=== PATIENT | male | born 1955 | race Hispanic/Latino ===

== ENCOUNTER 2020-08-28 09:25 | Outpatient (CLI) | payer MEDICARE ==
--- NOTE | 2020-08-28 11:27 | RAD ---
Radiograph right hip 2 views: 08/28/2020 HISTORY: 64-year-old male with right hip pain FINDINGS: High-grade degenerative disc disease at L4-5 and L5-S1. Narrowing of the [id number] lateral aspect of the right hip joint space, where there is mild s clerosis Femoral head contour maintained. No subcapital osteophytes. No fracture or dislocation. No high-grade DJD of right SI joint. IMPRESSION: 1.) Mild to moderate osteoarthrosis focally at the superolateral aspect of the right hip joint. 2.) High-grade lower lumbar and lumbosacral spondylosis.
--- NOTE | 2020-08-29 12:38 | RAD ---
XR Lumbar Spine 2 or 3 View HISTORY: 64-year-old male with right hip pain FINDINGS: High-grade degenerative disc disease at L4-5 and L5-S1. Narrowing of the [id number] lateral aspect of the right hip joint space, where there is mild s clerosis Femoral head contour maintained. No subcapital osteophytes. No fracture or dislocation. No high-grade DJD of right SI joint. IMPRESSION: 1.) Mild to moderate osteoarthrosis focally at the superolateral aspect of the right hip joint. 2.) High-grade lower lumbar and lumbosacral spondylosis. Transcribed Date/Time: 08/29/2020 12:38 PM
== END 2020-08-28 09:26 | disposition home or self-care (01) ==
LOC: RAD 09:25
PROVIDERS: ATTEND Urology
DX: M54.31 Sciatica, right side (principal); M16.11 Unilateral primary osteoarthritis, right hip; M47.816 Spondylosis without myelopathy or radiculopathy, lumbar region; M47.817 Spondylosis without myelopathy or radiculopathy, lumbosacral region
CPT/HCPCS: 72100

== ENCOUNTER 2020-09-07 11:13 | Outpatient (CLI) | payer MEDICARE, OTHER ==
--- NOTE | 2020-09-07 12:21 | RAD ---
Chest 2 views HISTORY: COVID pneumonia. FINDINGS: No comparison. Cardiac silhouette is upper limits of normal in size. Pulmonary vasculature are unremarkable. Mediastinum is midline. Thoracic aorta is somewhat tortuous. Metallic clips overlie the left side of the chest on the frontal view. Ill-defined, somewhat streaky peripheral areas of normal opacity most pronounced at the lung bases. N o lobar consolidation. No pleural fluid or pneumothorax. IMPRESSION : Mild patchy bilateral infiltrates may reflect COVID pneumonitis. No confluent process or other acute abnormalities are evident.
== END 2020-09-07 11:14 | disposition home or self-care (01) ==
LOC: BICRAD 11:13
PROVIDERS: ATTEND Urology
DX: U07.1 COVID-19 (principal); R91.8 Other nonspecific abnormal finding of lung field
CPT/HCPCS: 71046; 80053; 81001; 82670; 84270; 84403; 85014; 85018; 87086; 88112; G0103; 36415